=== PATIENT | female | born 1975 | race Hispanic/Latino ===

== ENCOUNTER 2025-06-28 11:42 | Emergency (ER) | payer OTHER, SELFPAY ==
[2025-06-28] VITALS (9 sets, daily range): BP systolic 129–139; BP diastolic 58–65; PULSE 81–93; RESP 12–24; TEMP 36.7; O2SAT 97–100; BMI 31.6
--- NOTE | 2025-06-28 11:46 | ED.SYNCOPE ---
HPI - Syncope <Abi Ojeda PA-C - Last Filed: 06/28/25 16:58> General Chief Complaint: Syncope Stated Complaint: Nausea, Syncope Time Seen by Provider: 06/28/25 11:46 History of Present Illness HPI narrative: Ms. Heath is a pleasant 49-year-old female with a past medical history of hypothyroidism who presents to the emergency department via EMS for syncope x2 at a restaurant. Patient lives in [place] and is currently visiting the area. She takes prescription medications including tirzepatide for weight loss, injectable testosterone, and she used to be on levothyroxine but is not currently taking this. After dinner last night her and her both felt slightly sick however she went to bed. This morning when she woke up she had a glass of water and she had coffee. She was sitting at a restaurant when she started to feel nauseous so she walked to the bathroom. The next thing she remembers is waking up on the ground throwing up. 911 was called. When the patient went from lying to standing she had another syncopal episode with EMS. She now feels much better and is alert and oriented, she has received 4 mg of Zofran and IV fluids are running. She denies ever having a syncopal episode in the past. She reports that she did hit the right side of her face when she fell the 1st time. At this time she has mild pain on the right side of her face but no other pain. She reports that she feels nauseous and somewhat weak. No chest pain, shortness of breath, fevers, chills, diarrhea, constipation, dysuria visual disturbance, dizziness, coughing, sore throat. No blood thinners. Related Data Previous Rx's ?Medication ?Instructions ?Recorded ondansetron 4 mg disintegrating 4 mg PO Q8H PRN nausea and 06/28/25 tablet vomiting #15 tabs Allergies Allergy/AdvReac Type Severity Reaction Status Date / Time No Known Drug Allergies Allergy Verified 06/28/25 11:57 Review of Systems <ANA Blanton Last Filed: 06/28/25 16:58> Review of Systems ROS Unobtainable: All systems reviewed & are unremarkable except as noted in HPI and below Exam <Abi Ojeda PA-C - Last Filed: 06/28/25 16:58> Narrative Exam Narrative: GENERAL: 49 year old AA female appears stated age. Well-developed patient, in no acute distress. HEAD: Atraumatic. Normocephalic. EYES: PERRL. Extraocular motions intact. No scleral icterus. No injection or drainage. ENT: Nose without bleeding, purulent drainage. Uvula midline. Airway patent. NECK: Trachea midline. Cervical ROM intact. No midline cervical tenderness. CARDIOVASCULAR: Regular rate and rhythm. RESPIRATORY: ?Nonlabored respirations. ?Speaking in clear, full sentences. ?Clear to auscultation. Breath sounds equal bilaterally. No wheezes, rales, or rhonchi. ? GASTROINTESTINAL: Abdomen soft, non-tender, nondistended. BS present. EXTREMITIES: No LE edema. No tenderness to palpation of bilateral upper and lower extremities BACK: Nontender without deformity or crepitance. No flank tenderness. NEURO: AOx3. ?Clear speech. ?Moves all 4 extremities appropriately. Answers all questions appropriately. No leg drift. 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 SKIN: No rash or erythema of visible areas Initial Vital Signs Initial Vital Signs: Vital Signs Temperature 98.0 F 06/28/25 11:49 Pulse Rate 93 H 06/28/25 11:49 Respiratory Rate 18 06/28/25 11:49 Blood Pressure 129/58 L 06/28/25 11:49 Pulse Oximetry 98 06/28/25 11:49 Oxygen Delivery Method Room Air 06/28/25 11:49 <Eileen Griffin MD - Last Filed: 06/30/25 01:00> Initial Vital Signs Initial Vital Signs: Vital Signs Temperature 98.0 F 06/28/25 11:49 Pulse Rate 93 H 06/28/25 11:49 Respiratory Rate 18 06/28/25 11:49 Blood Pressure 129/58 L 06/28/25 11:49 Pulse Oximetry 98 06/28/25 11:49 Oxygen Delivery Method Room Air 06/28/25 11:49 Scores <Abi Ojeda PA-C - Last Filed: 06/28/25 16:58> Nexus Score for C-Spine Focal Neurologic deficit present: No Midline spinal tenderness present: No Altered level of conciousness present: No Intoxication present: No Distracting Injury Present: No Nexus Criteria for C-spine: 0 <Eileen Griffin MD - Last Filed: 06/30/25 01:00> Nexus Score for C-Spine Nexus Criteria for C-spine: 0 Course <Abi Ojeda PA-C - Last Filed: 06/28/25 16:58> Orders Ordered: Discontinued Medications Acetaminophen (Acetaminophen 325 Mg Tablet) 975 mg PO NOW ONE Stop: 06/28/25 13:32 Last Admin: 06/28/25 13:35 Dose: 975 mg Documented By: DAKOTA Sodium Chloride (Normal Saline 0.9%) 1,000 mls @ 150 mls/hr IV CONT ERIC Last Infusion: 06/28/25 14:44 Dose: Infused Documented By: Admin: 06/28/25 12:36 Dose: 150 mls/hr Documented By: INEZ Ondansetron HCl (Ondansetron 4 Mg/2 Ml Inj) 4 mg IV PRN PRN PRN Reason: Nausea And Vomiting Vital Signs Vital signs: Vital Signs - 8 hr 06/28/25 11:49 06/28/25 11:50 06/28/25 11:50 Temperature 98.0 F Pulse Rate 93 H 86 Respiratory Rate 18 12 Blood Pressure 129/58 L 139/65 Pulse Oximetry 98 97 Oxygen Delivery Method Room Air 06/28/25 12:00 06/28/25 12:36 06/28/25 13:00 Temperature Pulse Rate 81 84 91 H Respiratory Rate 23 24 Blood Pressure Pulse Oximetry 98 97 Oxygen Delivery Method 06/28/25 13:30 06/28/25 14:00 06/28/25 14:30 Temperature Pulse Rate 93 H 90 89 Respiratory Rate 22 18 16 Blood Pressure Pulse Oximetry 97 97 97 Oxygen Delivery Method 06/28/25 16:02 Temperature Pulse Rate 81 Respiratory Rate 17 Blood Pressure 129/62 Pulse Oximetry 100 Oxygen Delivery Method Room Air <Eileen Griffin MD - Last Filed: 06/30/25 01:00> Orders Ordered: Discontinued Medications Acetaminophen (Acetaminophen 325 Mg Tablet) 975 mg PO NOW ONE Stop: 06/28/25 13:32 Last Admin: 06/28/25 13:35 Dose: 975 mg Documented By: DAKOTA Sodium Chloride (Normal Saline 0.9%) 1,000 mls @ 150 mls/hr IV CONT ERIC Last Infusion: 06/28/25 14:44 Dose: Infused Documented By: Admin: 06/28/25 12:36 Dose: 150 mls/hr Documented By: INEZ Ondansetron HCl (Ondansetron 4 Mg/2 Ml Inj) 4 mg IV PRN PRN PRN Reason: Nausea And Vomiting Vital Signs Vital signs: Vital Signs - 8 hr 06/28/25 11:49 06/28/25 11:50 06/28/25 11:50 Temperature 98.0 F Pulse Rate 93 H 86 Respiratory Rate 18 12 Blood Pressure 129/58 L 139/65 Pulse Oximetry 98 97 Oxygen Delivery Method Room Air 06/28/25 12:00 06/28/25 12:36 06/28/25 13:00 Temperature Pulse Rate 81 84 91 H Respiratory Rate 23 24 Blood Pressure Pulse Oximetry 98 97 Oxygen Delivery Method 06/28/25 13:30 06/28/25 14:00 06/28/25 14:30 Temperature Pulse Rate 93 H 90 89 Respiratory Rate 22 18 16 Blood Pressure Pulse Oximetry 97 97 97 Oxygen Delivery Method 06/28/25 16:02 Temperature Pulse Rate 81 Respiratory Rate 17 Blood Pressure 129/62 Pulse Oximetry 100 Oxygen Delivery Method Room Air MDM - Syncope <Abi Ojeda PA-C - Last Filed: 06/28/25 16:58> Medical Records Medical records narrative: None available for review Lab Data 06/28/25 12:00 06/28/25 12:00 Labs: Lab Results 06/28/25 06/28/25 06/28/25 Range/Units 11:58 12:00 14:10 WBC 7.6 (4.5-11.0) X10^3/uL RBC 4.42 (4.0-5.2) X10^6/uL Hgb 12.8 (12.0-16.0) g/dL Hct 37.9 (36-46) % MCV 85.8 (80-100) fL MCH 28.9 (26-34) PG MCHC 33.7 (30-36) % RDW 13.0 (11.6-14.8) % Plt Count 393 (150-400) X10^3/uL Neut % (Auto) 44.5 L (50-75) % Lymph % (Auto) 45.9 H (25-40) % [place] % (Auto) 7.1 (3-14) % Eos % (Auto) 2.1 (2-4) % Baso % (Auto) 0.4 (0-2) % Neut # (Auto) 3400 (3393-0423) /uL Lymph # (Auto) 3500 (9262-9870) /uL [place] # (Auto) 500 (0-900) /uL Eos # (Auto) 200 (0-450) /uL Baso # (Auto) 0 (0-100) /uL PT 11.9 (9.4-12.5) SECONDS INR 1.1 (0.9-1.3) APTT 29 (25.1-36.5) SECONDS Sodium 137 (137-145) mmol/L Potassium 3.8 (3.4-5.1) mmol/L Chloride 103 (98-107) mmol/L Carbon Dioxide 25 (22-32) mmol/L BUN 18 H (7-17) mg/dL Creatinine 1.00 (0.52-1.04) mg/dL Estimated GFR > 60 (>60) mL/min BUN/Creatinine Ratio 18.0 (6-22) Glucose 134 H (70-99) mg/dL Calcium 9.9 (8.4-10.2) mg/dL Magnesium 1.9 (1.6-2.3) mg/dL Total Bilirubin 0.4 (0.2-1.3) mg/dL AST 26 (14-36) IU/L ALT 21 (<35) IU/L Alkaline Phosphatase 67 (38-126) U/L Total Creatine Kinase 157 H (30-135) U/L Troponin I < 0.012 < 0.012 (0.01-0.034) ng/mL NT-Pro-B Natriuret Pep < 20 (<125) pg/mL Total Protein 8.6 H (6.3-8.2) g/dL Albumin 4.9 (3.5-5.0) g/dL Globulin 3.7 (1.7-4.1) g/dL Albumin/Globulin Ratio 1.3 (1.0-2.8) Lipase 112 (23-300) U/L SARS-CoV-2 (PCR) Negative (Negative) Influenza A (RT-PCR) Flu a negative (NEGATIVE) Influenza B (RT-PCR) Flu b negative (NEGATIVE) RSV (PCR) Negative (Negative) Urine Dip Bedside Urine Glucose Negative Bedside Urine Bilirubin - Negative Bedside Urine Ketone - Negative Urine Specific [place] 1.010 Bedside Urine Occult Blood +/- Bedside Urine pH 6.0 Bedside Urine Protein - Negative Bedside Urine Urobilinogen - Negative Bedside Urine Nitrite - Negative Bedside Urine Leukocytes - Negative Esterase Imaging Data CT scan - head: Radiologist's Impression: PROCEDURE: CT HEAD/BRAIN WO CON INDICATIONS: syncope; hit r side of head TECHNIQUE: Noncontrast 4.5 mm thick angled axial sections acquired from the foramen magnum to the vertex, with coronal and sagittal reformats. For radiation dose reduction, the following was used: automated exposure control, adjustment of mA and/or kV according to patient size. COMPARISON: None. FINDINGS: Image quality: Diagnostic. CSF spaces: Basal cisterns are patent. No extra-axial fluid collections. Ventricles are normal in size and shape. Brain: No midline shift. No intracranial mass effect or hemorrhage. Camacho-white matter interface is normal. Skull and face: Calvarium and visualized facial bones are intact, without suspicious lesions. Sinuses: Visualized sinuses and mastoids are clear. IMPRESSION: No acute intracranial pathology. Dictated by: Christian Tobar M.D. on 06/28/2025 at 12:46 Approved by: Christian Tobar M.D. on 06/28/2025 at 12:46 Chest x-ray: Radiologist's Impression: PROCEDURE: XR CHEST 1V INDICATIONS: Chest Pain TECHNIQUE: One view of the chest was acquired. COMPARISON: None. FINDINGS: Surgical changes and devices: None. Lungs and pleura: Lungs are clear. No pleural effusions or pneumothorax. Mediastinum: Mediastinal contours appear normal. Heart size is normal. Bones and chest wall: No suspicious bony lesions. Overlying soft tissues appear unremarkable. IMPRESSION: No acute cardiopulmonary pathology. Dictated by: Christian Tobar M.D. on 06/28/2025 at 12:35 Approved by: Christian Tobar M.D. on 06/28/2025 at 12:35 ECG Data Interpretation: EKG reveals normal sinus rhythm with a rate of 83 beats per minute, QTC of [address] segment elevation. MDM Narrative Medical decision making narrative: 49-year-old female with a past medical history of hypothyroidism who presents to the emergency department via EMS for syncope x2 at a restaurant. Differential diagnosis includes but isn't limited to hypoglycemia, orthostasis, dehydration, electrolyte derangement, gastroenteritis, viral syndrome, closed head injury, ICH, ACS, arrhythmia, etc. On exam patient is in no acute distress, nontoxic appearing, vital signs appropriate, answers all questions appropriately, no focal neurologic deficits, no signs of trauma. She reports feeling nauseous like she might throw up and then she had a witnessed syncopal episode in a restaurant. She vomited. There was no seizure-like activity or postictal state. When EMS got the patient upright she did have another brief syncopal episode. Patient is now feeling better after receiving 4 mg of Zofran and IV fluids via EMS. No chest pain or shortness of breath. No headache. No fevers. She does take his appetite and had a dose yesterday morning. No blood thinners. CT head ordered given syncope with right-sided head injury. C-spine cleared by nexus criteria. We will obtain chest pain workup including viral swab, treat with IV fluids. Point of care urinalysis is negative. test not done because patient has had BTL. Labs reveal normal WBC count 7.6, hemoglobin 12.8 hematocrit 37.9. Normal platelets 393. Normal sodium 137, potassium 3.8. BUN is 18 creatinine is 1.0 with no known baseline. Glucose 134. Normal LFTs. Total creatinine kinase 157. Undetectable troponin undetectable BNP. Normal lipase 112. 1330: Re-evaluated the patient. She is feeling slightly better but states that she overall feels exhausted and some chills. We are still awaiting CT head and chest x-ray. Reports that she started to develop some more pain on the right side of her head from where she hit her head, Tylenol ordered. Chest x-ray reveals no acute cardiopulmonary pathology. Head CT reveals no acute intracranial pathology. 1545: On re-evaluation of patient she feels much better, passed ambulation trial, she is eager to go home. Repeat troponin negative. Reviewed all imaging and lab work results. Discussed my concern for possible dehydration orthostasis but encouraged her to follow up with the PCP for further workup. Discussed strict ER return precautions. We will prescribed nausea medication. She is stable for discharge home with her , all questions answered. <Eileen Griffin MD - Last Filed: 06/30/25 01:00> Lab Data Labs: Lab Results 06/28/25 06/28/25 06/28/25 Range/Units 11:58 12:00 14:10 WBC 7.6 (4.5-11.0) X10^3/uL RBC 4.42 (4.0-5.2) X10^6/uL Hgb 12.8 (12.0-16.0) g/dL Hct 37.9 (36-46) % MCV 85.8 (80-100) fL MCH 28.9 (26-34) PG MCHC 33.7 (30-36) % RDW 13.0 (11.6-14.8) % Plt Count 393 (150-400) X10^3/uL Neut % (Auto) 44.5 L (50-75) % Lymph % (Auto) 45.9 H (25-40) % [place] % (Auto) 7.1 (3-14) % Eos % (Auto) 2.1 (2-4) % Baso % (Auto) 0.4 (0-2) % Neut # (Auto) 3400 (5988-3410) /uL Lymph # (Auto) 3500 (6929-9298) /uL [place] # (Auto) 500 (0-900) /uL Eos # (Auto) 200 (0-450) /uL Baso # (Auto) 0 (0-100) /uL PT 11.9 (9.4-12.5) SECONDS INR 1.1 (0.9-1.3) APTT 29 (25.1-36.5) SECONDS Sodium 137 (137-145) mmol/L Potassium 3.8 (3.4-5.1) mmol/L Chloride 103 (98-107) mmol/L Carbon Dioxide 25 (22-32) mmol/L BUN 18 H (7-17) mg/dL Creatinine 1.00 (0.52-1.04) mg/dL Estimated GFR > 60 (>60) mL/min BUN/Creatinine Ratio 18.0 (6-22) Glucose 134 H (70-99) mg/dL Calcium 9.9 (8.4-10.2) mg/dL Magnesium 1.9 (1.6-2.3) mg/dL Total Bilirubin 0.4 (0.2-1.3) mg/dL AST 26 (14-36) IU/L ALT 21 (<35) IU/L Alkaline Phosphatase 67 (38-126) U/L Total Creatine Kinase 157 H (30-135) U/L Troponin I < 0.012 < 0.012 (0.01-0.034) ng/mL NT-Pro-B Natriuret Pep < 20 (<125) pg/mL Total Protein 8.6 H (6.3-8.2) g/dL Albumin 4.9 (3.5-5.0) g/dL Globulin 3.7 (1.7-4.1) g/dL Albumin/Globulin Ratio 1.3 (1.0-2.8) Lipase 112 (23-300) U/L SARS-CoV-2 (PCR) Negative (Negative) Influenza A (RT-PCR) Flu a negative (NEGATIVE) Influenza B (RT-PCR) Flu b negative (NEGATIVE) RSV (PCR) Negative (Negative) Urine Dip Bedside Urine Glucose Negative Bedside Urine Bilirubin - Negative Bedside Urine Ketone - Negative Urine Specific [place] 1.010 Bedside Urine Occult Blood +/- Bedside Urine pH 6.0 Bedside Urine Protein - Negative Bedside Urine Urobilinogen - Negative Bedside Urine Nitrite - Negative Bedside Urine Leukocytes - Negative Esterase Imaging Data CT scan - head: Radiologist's Impression: PROCEDURE: CT HEAD/BRAIN WO CON INDICATIONS: syncope; hit r side of head TECHNIQUE: Noncontrast 4.5 mm thick angled axial sections acquired from the foramen magnum to the vertex, with coronal and sagittal reformats. For radiation dose reduction, the following was used: automated exposure control, adjustment of mA and/or kV according to patient size. COMPARISON: None. FINDINGS: Image quality: Diagnostic. CSF spaces: Basal cisterns are patent. No extra-axial fluid collections. Ventricles are normal in size and shape. Brain: No midline shift. No intracranial mass effect or hemorrhage. Camacho-white matter interface is normal. Skull and face: Calvarium and visualized facial bones are intact, without suspicious lesions. Sinuses: Visualized sinuses and mastoids are clear. IMPRESSION: No acute intracranial pathology. Dictated by: Christian Tobar M.D. on 06/28/2025 at 12:46 Approved by: Christian Tobar M.D. on 06/28/2025 at 12:46 Chest x-ray: Radiologist's Impression: PROCEDURE: XR CHEST 1V INDICATIONS: Chest Pain TECHNIQUE: One view of the chest was acquired. COMPARISON: None. FINDINGS: Surgical changes and devices: None. Lungs and pleura: Lungs are clear. No pleural effusions or pneumothorax. Mediastinum: Mediastinal contours appear normal. Heart size is normal. Bones and chest wall: No suspicious bony lesions. Overlying soft tissues appear unremarkable. IMPRESSION: No acute cardiopulmonary pathology. Dictated by: Christian Tobar M.D. on 06/28/2025 at 12:35 Approved by: Christian Tobar M.D. on 06/28/2025 at 12:35 Discharge Plan Departure Patient Disposition: Home Clinical Impression: Syncope Qualifiers: Syncope type: unspecified Qualified Code(s): R55 - Syncope and collapse Nausea & vomiting Qualifiers: Vomiting type: unspecified Qualified Code(s): R11.2 - Nausea with vomiting, unspecified Instructions: DI for Nausea -- Adult Activity Restrictions/Additional Instructions: Dear Sugey, Thank you for coming to emergency department. Today you were evaluated after passing out. Your workup today was overall reassuring. This time I am concerned that you may have been slightly dehydrated contributing to a low blood pressure. You were treated with IV fluids and IV nausea medication. CT scan of your head and chest x-ray were reassuring. At this time you are being discharged with a prescription for nausea medication. It is very important to rest, hydrate often, and it is small but frequent meals. Please follow up with the primary care doctor for further workup. Please return to ER immediately if you develop any new or worsening symptoms such as chest pain, shortness of breath, feeling lightheaded again or any other concerns. Please follow up with your primary care doctor within the next 2-3 days for ER follow-up. (If you do not have a PCP you can call [phone]. ?to schedule an appointment with an [facility] Primary Care Provider) IF YOU DEVELOP ANY NEW OR WORSENING SYMPTOMS, RETURN TO THE ER! Please read the attached instructions, they highlight more specific treatments and interventions for you at home. Thank you for letting me participate in your care, Abi Ojeda PA-C Prescriptions: New ondansetron 4 mg tablet,disintegrating 4 mg PO Q8H PRN (Reason: nausea and vomiting) Qty: 15 0RF Stand Alone Forms: Patient Portal/API ED Sign-out <Eileen Griffin MD - Last Filed: 06/30/25 01:00> Cosign ED Attending Tanna Attestation: I reviewed the documentation entered by the physician surgery assistant. I was not directly involved in this patient?s care, but I reviewed the documented history, examination findings, assessment, and plan with the PA. I agree with the evaluation and plan as documented. Eileen Griffin MD Emergency Medicine Attending
--- NOTE | 2025-06-28 11:58 | DI.CT.S_ITS ---
PROCEDURE: CT HEAD/BRAIN WO CON INDICATIONS: syncope; hit r side of head TECHNIQUE: Noncontrast 4.5 mm thick angled axial sections acquired from the foramen magnum to the vertex, with coronal and sagittal reformats. For radiation dose reduction, the following was used: automated exposure control, adjustment of mA and/or kV according to patient size. COMPARISON: None. FINDINGS: Image quality: Diagnostic. CSF spaces: Basal cisterns are patent. No extra-axial fluid collections. Ventricles are normal in size and shape. Brain: No midline shift. No intracranial mass effect or hemorrhage. Camacho- white matter interface is normal. Skull and face: Calvarium and visualized facial bones are intact, without suspicious lesions. Sinuses: Visualized sinuses and mastoids are clear. IMPRESSION: No acute intracranial pathology. Dictated by: Christian Tobar M.D. on 06/28/2025 at 12:46 Approved by: Christian Tobar M.D. on 06/28/2025 at 12:46
--- NOTE | 2025-06-28 11:58 | DI.RAD.S_ITS ---
PROCEDURE: XR CHEST 1V INDICATIONS: Chest Pain TECHNIQUE: One view of the chest was acquired. COMPARISON: None. FINDINGS: Surgical changes and devices: None. Lungs and pleura: Lungs are clear. No pleural effusions or pneumothorax. Mediastinum: Mediastinal contours appear normal. Heart size is normal. Bones and chest wall: No suspicious bony lesions. Overlying soft tissues appear unremarkable. IMPRESSION: No acute cardiopulmonary pathology. Dictated by: Christian Tobar M.D. on 06/28/2025 at 12:35 Approved by: Christian Tobar M.D. on 06/28/2025 at 12:35
[2025-06-28 12:08] LABS: Add Manual Diff / Slide Review NO; Hematocrit 37.9 % (36-46); Hemoglobin 12.8 g/dL (12.0-16.0); Lymphocytes Absolute Auto 3500 /uL (1100-4500); Mean Corpuscular HGB Conc 33.7 % (30-36); Mean Corpuscular Hemoglobin 28.9 PG (26-34); Mean Corpuscular Volume 85.8 fL (80-100); Platelet Count 393 X10^3/uL (150-400)
--- NOTE | 2025-06-28 12:18 | EKG_ITS ---
[id number] [address] Test Date: 2025-06-28 Pat Name: Love Mayes Department: [facility] Room: Gender: Female Internal Grinder: LAURI : 1975 Requested By: Order Number: [id number] Reading MD: Adrian Strickland MD Measurements Intervals [place] Rate: 83 P: 74 SD: 148 QRS: 33 QRSD: 90 T: 63 QT: 370 QTc: 434 Interpretive Statements Normal sinus rhythm with sinus arrhythmia Electronically Signed On 06-29-2025 9:19:04 PST by Adrian Strickland MD
[2025-06-28 12:21] LABS: INR 1.1 (0.9-1.3); Prothrombin Time 11.9 SECONDS (9.4-12.5)
[2025-06-28 12:24] LABS: PTT Partial Thromboplastin Tim 29 SECONDS (25.1-36.5)
[2025-06-28 12:25] LABS: Alanine Aminotransferase 21 IU/L (<35); Albumin 4.9 g/dL (3.5-5.0); Albumin Globulin Ratio 1.3 (1.0-2.8); Alkaline Phosphatase 67 U/L (38-126); Blood Urea Nitrogen 18 mg/dL (7-17); Calcium 9.9 mg/dL (8.4-10.2); Carbon Dioxide 25 mmol/L (22-32); Chloride 103 mmol/L (98-107); Creatine Kinase 157 U/L (30-135); Estimated Glomerular Filt Rate > 60 mL/min (>60); Globulin 3.7 g/dL (1.7-4.1); Glucose 134 mg/dL (70-99); HEMOLYSIS < 15 (0-50); Lipase 112 U/L (23-300); Magnesium 1.9 mg/dL (1.6-2.3); Potassium 3.8 mmol/L (3.4-5.1); Sodium 137 mmol/L (137-145); Total Protein 8.6 g/dL (6.3-8.2)
[2025-06-28] MEDS: SODIUM CHLORIDE 0.9% 1,000 ML 150 ML IV (12:36)
[2025-06-28 12:37] LABS: NT-proBNP (BNP-Adult 18+) < 20 pg/mL (<125); Troponin I < 0.012 ng/mL (0.01-0.034)
[2025-06-28 12:53] LABS: COVID-19 CEPHEID 4-PLEX PCR Negative (Negative); Influenza A - CEPHEID Flu A NEGATIVE (NEGATIVE); Influenza B - CEPHEID Flu B NEGATIVE (NEGATIVE)
[2025-06-28] MEDS: ACETAMINOPHEN 325 MG TABLET 975 MG PO (13:35)
[2025-06-28 14:51] LABS: Troponin I < 0.012 ng/mL (0.01-0.034)
== END 2025-06-28 16:05 | disposition home or self-care (01) ==
PROVIDERS: Emergency Provider Physician Assistant
DX: R55 Syncope and collapse (principal); R11.2 Nausea with vomiting, unspecified; R51.9 Headache, unspecified
CPT/HCPCS: 70450; 71045; 80053; 81003; 82550; 83690; 83735; 83880; 84484; 85025; 85610; 85730; 87637; 93005; 93010; 96360; 96361; 99284; J7030